=== PATIENT | male | born 1955 | race Caucasian/White ===

== ENCOUNTER → 2016-08-26 | Outpatient (CLI) | payer SELFPAY ==
[~2016-08-26] MED LIST: ALLOPURINOL300 MG PO; AMOXICILLIN500 MG PO; CARAFATE1 G1 PO; CLARITIN10 MG PO; CLINDAMYCIN HC300 MG PO; COLCHICINE0.6 MG PO; EES400 MG PO; FERROUS SULFAT325 M2 PO; FLEXERIL10 MG PO; HYDR12.5C PO; HYDROCODONE BIT1 T11 PO; LISINOPRIL40 MG PO; Lovenox40 MG/0.4 SC; MEDROL DOSEPAK4 MG PO; NAPROXEN500 MG; NEURONTIN100 MG PO; NKHM; NORVASC2.5 MG PO; NORVASC5 MG PO; PEPCID20 MG PO; PHENERGAN25 M3 PO; PREDNICOT20 MG PO; PREDNISONE20 MG PO; PREVACID30 M2 PO; PRILOSEC OTC20 MG PO; PROTONIX40 MG PO; RANITIDINE150 MG PO; SOLU-MEDROL40 MG IV; SUNMARK OMEPRAZ20 M1 PO; TOPROL XL100 MG PO; TRAMADOL HCL50 MG PO; TYLENOL COLD HE1 TAB; ULTRAM50 MG PO; VICODIN 500 MG-1 TAB PO; VICODIN ES 7501 TAB PO; VITAMIN C100 M2; ZANTAC 150150 MG PO; ZITHROMAX250 MG PO; ZOFRAN4 MG PO
[2016-08-26 11:39] LABS: ALBUMIN 3.7 gm/dl (3.1-4.5); ALKALINE PHOSPHATASE 70 U/L (45-117); BILIRUBIN, TOTAL 0.5 mg/dl (0.2-1.0); BUN 12 mg/dl (7-24); CARBON DIOXIDE 29 mmol/L (21-32); CHLORIDE 108 mmol/L (98-107); CHOLESTEROL 158 mg/dL (<200); EST GLOM FILT AFRICAN AMERICAN > 60 ml/min; GLUCOSE 107 mg/dL (65-99); HDL CHOLESTEROL 42 mg/dl (40-60); LDL CHOLESTEROL 84 mg/dL (9-159); POTASSIUM 4.1 mmol/L (3.5-5.1); SGOT/AST 18 IU/L (3-35); SGPT/ALT 35 U/L (12-78); SODIUM 144 mmol/L (136-145); TOTAL PROTEIN 7.5 gm/dL (6.4-8.2); TRIGLYCERIDES 158 mg/dl (<150); VLDL CHOLESTEROL 32 mg/dL (6-40)
== END | disposition home or self-care (01) ==
LOC: RESCLI 01:53
PROVIDERS: Internal Medicine
DX: I10 Essential (primary) hypertension (principal); K21.9 Gastro-esophageal reflux disease without esophagitis; M10.9 Gout, unspecified; E66.9 Obesity, unspecified; E78.2 Mixed hyperlipidemia; L30.9 Dermatitis, unspecified; R20.2 Paresthesia of skin

== ENCOUNTER 2016-10-05 12:03 | Inpatient (IN) | payer SELFPAY ==
[~2016-10-05] VITALS: Ht 157.4 cm; Wt 57.4 kg
--- NOTE | ~2016-10-05 | PR ---
[place], [place] PROGRESS NOTE [id number] UN[facility] #: [id number] ROOM: 518 DOCTOR: YEYO LACKEY [facility] BIRTHDATE: [birth year] DOS: 10/08/2016 OBJECTIVE: VITAL SIGNS: Vital signs stable. Blood pressure 132/64, pulse ox is 94, heart rate is 70, and respiratory rate is 18. SKIN: Warm, not diaphoretic. LUNGS: No rales. HEART: S1, S2 regular. ABDOMEN: Soft. Color is good. Not diaphoretic. No cyanosis. The patient had a GI procedure. Dr. Whitten has done that. It was an EGD and a gastric biopsy, and colonoscopy and a snare polypectomy was done. The patient has abdominal pain and a full report will follow later on and I will review the myocardial perfusion can. If abnormal, coronary arteriography. Otherwise, conservative management explained to the patient. JAY ORONA MD CM:PNTRANS [id number] [id number] JAY ORONA MD [facility] 10/09/16 0929 interface
--- NOTE | ~2016-10-05 | PR ---
[place], [place] PROGRESS NOTE NAME[id number] UN[facility] #: [id number] ROOM: 518 DOCTOR: YEYO LACKEY [facility],JAY BIRTHDATE: [birth year] DOS: 10/08/2016 ADDENDUM The patient underwent dobutamine stress echo. No ischemic changes noted. Systolic function of the left ventricle is normal. Technically difficulty was reported, but no wall motion abnormality is noted. No significant evidence for myocardial ischemia noted. JAY ORONA MD CM:PNTRANS 0738 0749 JAY ORONA MD, [facility]ACC 10/09/16 0931 interface
--- NOTE | ~2016-10-05 | PR ---
[place], [place] PROGRESS NOTE NAME: CIPRIANO THOMPSON [facility] #: [id number] UNIT #: [id number] ROOM: 518 DOCTOR: MERE HAMMOND MD BIRTHDATE: [birth year] DOS: 10/08/2016 SUBJECTIVE: Twenty-four events noted. Discussed with the nursing staff. Apparently, the patient had a stress test by Dr. Mendoza who was automation test developer this weekend. I do not have the official report of that, but I was told that stress test was normal. Hemodynamically, he is stable, underwent an EGD basically showed gastritis and esophagitis. The patient is being followed by Dr. Whitten. OBJECTIVE: GENERAL: Hemodynamically, he appears to be stable. VITAL SIGNS: Blood pressure is stable. NECK: Supple, no JVD. LUNGS: Clear. HEART: Sounds are regular. ABDOMEN: Soft, nontender. NEUROLOGIC: Appears to be stable. LABORATORY DATA: Hemoglobin and hematocrit within normal limits. RECOMMENDATIONS: The patient with gastritis and upper GI esophagitis, hypertension. Continue the metoprolol as ordered. Continue the amlodipine also. Slowly advance the diet and will followup upon discharge. MERE HAMMOND MD CM:PNTRANS 0750 [id number] MERE HAMMOND MD 10/09/16 0113 interface
--- NOTE | ~2016-10-05 | CON ---
[place], [place] REPORT OF CONSULTATION NAME: CIPRIANO THOMPSON [facility] #: [id number] UNIT #: [id number] ROOM: 518 [facility] [birth year] DOS: CARDIOLOGY CONSULTATION IMPRESSION: Very transient chest pain, evaluating for ischemic heart disease. HISTORY OF PRESENT ILLNESS: The patient has a history of hypertension, hypertensive cardiovascular disease considered. No history of smoking. No history of heart attack and no significant family history of heart disease. No syncope or presyncope. No further chest discomfort noted. The patient was found to be hypertensive now. PHYSICAL EXAMINATION: VITAL SIGNS: Blood pressure 164/94, 139/74; heart rate is 63; respiratory rate is 20. Afebrile. SKIN: Warm, not diaphoretic. NECK: No jugular venous distention noted. LUNGS: No rales heard. HEART: S1, S2 regular. No gallops heard. ABDOMEN: Soft, no tenderness noted. NEUROLOGICAL: No focal neurological deficit noted. RECTAL AND GENITAL: Deferred, unrelated. The patient underwent a dobutamine stress echo. No ischemic changes noted. All the segments of the left ventricle ifrah well and no segmental wall motion abnormalities noted greater than 140. Exercise, they could not do the conventional exercise. The patient is on amlodipine 10 mg daily, Zyloprim 100 mg daily, metoprolol succinate 100 mg daily, lisinopril 40 mg daily. The patient was on Norvasc 5 mg, he is now on 10 mg daily. The patient is on simvastatin 20 mg daily. We may change lisinopril/hydrochlorothiazide 20/25 twice a day. Thank you very much for asking me to see the patient. I will follow the patient with you. JAY ORONA MD CM:CONSTR:REPORT OF CONSULTATION 10/08/16 0800 interface
--- NOTE | ~2016-10-05 | O ---
[place], [place] OPERATIVE NOTE [id number] UNIT #: [id number] ROOM: 518 DOCTOR: JAMES LACKEY,LINDY BIRTHDATE: [birth year] DOS: 10/07/2016 The patient has presented with history of rectal bleed. PROCEDURE: Today's procedure part of investigation is colonoscopy. PREMEDICATION: Versed and Diprivan. SCOPE: Olympus forward-viewing colonoscope 10L video. OPERATIVE TECHNIQUE: After putting the patient in the left lateral position and after application of lubricant to rectal pouch and digital examination, scope was introduced. Thereafter, under direct visualization with difficulty, was advanced through the length of the colon to the base of cecum, ileocecal valve definitively was identified. Appendiceal orifice identified, photographed and scope was gradually withdrawn along the length of colon, which contained several loops of colon with semi-liquid stool in it. A polypoid lesion in rectal pouch with snare was polypectomized and air was suctioned out. The patient was extubated, tolerated procedure well. IMPRESSION: Redundant and tortuous colon. Presence of polypoid lesion in the rectal pouch, retained semi-liquid stool. PLAN: I am going to offer this patient to come back on Friday and to be added on the schedule for reassessment of the detailed evaluation of the colon for the presence of other polyps, otherwise for him to await polypectomy results which was done in his rectal pouch approximately 10 cm from the rectal anatomy and follow up again in 6 months. Choice was given to the patient. LINDY RAMIREZ MD CM:OPRECORD:OPERATIVE NOTE 1851 16 LINDY RAMIREZ MD 10/07/16 2018 interface
--- NOTE | ~2016-10-05 | CON ---
[place], [place] REPORT OF CONSULTATION NAME[id number] UN[facility] #: [id number] ROOM: 518 DOCTOR: JAMES LACKEYELIOBERNA BIRTHDATE: [birth year] DOS: HISTORY OF PRESENT ILLNESS: A 61-year-old patient who has presented with atypical chest pain as well as blood in his stool, undergoing investigation. The patient had a cardiac workup done this morning and he was declared clear. He had a panel of blood work done; white blood cell was 7, H and H of 15 and 45. Differential within normal limits. INR was 0.9. Comprehensive metabolic panel with GFR greater than 60. Electrolytes were balanced. Liver function tests. Troponin within normal limits. Chest x-ray subsequently was done, no acute process was identified. His hemoglobin A1c 5.7. Troponin repeatedly was negative. Comprehensive metabolic panel, repeat again within normal limits. PAST MEDICAL HISTORY: Associated with obesity, gout, chronic joint pain, hypertension, osteoarthritis, atypical chest pain. SOCIAL HISTORY: Nonsmoker, nonalcohol consumer he says. Social history, otherwise as identified. ALLERGIES: PENICILLIN AND IBUPROFEN. MEDICATIONS: List has been reviewed. He is on ranitidine 150 mg daily. REVIEW OF SYSTEMS: HEENT: Denies double vision, blurred vision. RESPIRATORY: Denies shortness of breath. CARDIOVASCULAR: Denies chest pain. DIGESTIVE SYSTEM: As identified above. No hematemesis; however, blood in stool. Atypical chest pain. PHYSICAL EXAMINATION: VITAL SIGNS: Stable. HEENT: Head: Normocephalic, nontraumatic. Mouth and buccal mucosa benign. NECK: Supple, no thyromegaly. CHEST: Symmetric anatomy, equal expansion. No wheeze. No rhonchi. HEART: Normal sinus rhythm, no gallop, no murmur. ABDOMEN: Obese, large, soft. No hepato-organomegaly. Bowel sounds present. EXTREMITIES: No cyanosis, no pedal edema. NEUROLOGIC: Alert, oriented to time, place, person. IMPRESSION: Atypical chest pain, ruling out hiatal hernia, ruling out esophageal ulcer with a history of gastric ulcer in past, blood in the stool. Concerned about the source of the above. Other adjunctive diagnosis gouty arthritis, hypercholesterolemia, hypertension. PLAN AND DISCUSSION: Labs reviewed, records reviewed. The patient cardiac stress test has been negative. We will proceed with endoscopy of upper tract and colonoscopy and if it is stable discharging today. [place], [place] REPORT OF CONSULTATION NAME: CIPRIANO THOMPSON UNIT #: [id number] ROOM: 518 DOCTOR: LINDY RAMIREZ MD BIRTHDATE: [birth year] LINDY RAMIREZ MD CM:CONSTR:REPORT OF CONSULTATION 1749 10/08/16 1307 interface
--- NOTE | ~2016-10-05 | O ---
[place], [place] OPERATIVE NOTE NAME[facility] [id number] UNIT #: [id number] ROOM: 518 DOCTOR: JAMES LACKEY,LINDY BIRTHDATE: [birth year] DOS: 10/07/2016 HISTORY OF PRESENT ILLNESS: This is a 61-year-old patient who was presented with chief complaint of blood in stool, undergo investigation. The patient with atypical chest pain, status post cardiac clearance. PROCEDURE: Today's procedure part of investigation is panendoscopy and colonoscopy. PREMEDICATION: Versed and Diprivan. SCOPE: Olympus forward-viewing gastroscope Q10 video. REPORT: After putting the patient in the left lateral position and after application of lubricant to the scope, the scope was introduced. Thereafter, under direct visualization, I advanced through the length of esophagus without difficulty. Evidence of reflux esophagitis and erosions was appreciated. Gastric pouch was entered. Gastritis seen. Duodenal bulb, second and third part within normal limits. The patient extubated, tolerated procedure well. IMPRESSION: Esophageal erosions secondary to reflux, gastritis, status post biopsy ruling out Helicobacter pylori. PLAN AND DISCUSSION: We are going to proceed with colonoscopy assessment. LINDY RAMIREZ MD CM:OPRECORD:OPERATIVE NOTE 1851 12 LINDY RAMIREZ MD 10/07/16 2014 interface
--- NOTE | ~2016-10-05 | O ---
[place], [place] OPERATIVE NOTE NAME: CIPRIANO THOMPSON [facility] #: [id number] UNIT #: [id number] ROOM: 518 DOCTOR: JAMES LACKEY,LINDY BIRTHDATE: [birth year] DOS: 10/09/2016 INDICATIONS: A 61-year-old patient who has presented with chief complaint of history of colonic polyp, a polypectomy had been done previously on him. However, his colon was not clean enough to have detailed information about the rest of the colon. PROCEDURE: Today's procedure part of investigation is colonoscopy plus polypectomy x 2. PREMEDICATION: Versed and Diprivan. SCOPE: Olympus forward viewing colonoscope 10L video. REPORT: After putting the patient in left lateral position and application of lubricant to rectal pouch and digital examination, the scope was introduced. Thereafter, under direct visualization, I advanced through the length of colon without difficulty. Base of the cecum explored, appendiceal orifice identified, and ileocecal valve was defined. A flat polypoid lesion in the hepatic flexure with snare was polypectomized. Another polypoid lesion in rectal pouch, which appears to be residual debris and the stump of the previous polyps, was polypectomized again and the site was deeply coagulated. This polyp of concern in the rectum is about 3 cm with inside the rectal pouch. Photographic series from which was obtained. The patient extubated, tolerated procedure well. IMPRESSION: 1. Rectal pouch polyp, status post snare polypectomy and coagulation of the site for deep management of polyp infiltration. 2. A flat polypoid lesion at hepatic flexure, status post snare polypectomy. PLAN: Supportive management, clinical reassessment. LINDY RAMIREZ MD CM:OPRECORD:OPERATIVE NOTE 0933 1244 LINDY RAMIREZ MD 10/09/16 1244 interface
[2016-10-05 12:03] VITALS: BP 149/87
[2016-10-05] MEDS ORDERED: Ranitidine Hyd150 MG PO (12:17)
[2016-10-05] MEDS ORDERED: PRAVASTATIN SOD40 MG PO (12:18)
[2016-10-05 12:19] LABS: BASO # 0.1 10*3/uL (0.0-0.1); BASO % 1.2 % (0.0-1.0); EOS # 0.2 10*3/uL (0.0-0.4); EOS % 2.1 % (1.0-4.0); HEMATOCRIT 45.7 % (42.0-52.0); HEMOGLOBIN 15.6 g/dl (14.0-18.0); LYMPH # 1.9 10*3/uL (1.3-4.4); LYMPH % 25.2 % (27.0-41.0); MEAN CORPUSCULAR HGB 31.1 pg (27.0-31.0); MEAN CORPUSCULAR HGB CONC 34.1 g/dl (33.0-37.0); MEAN PLATELET VOLUME 10.2 fl (9.6-12.3); MONO # 0.6 10*3/uL (0.1-1.0); MONO % 8.2 % (3.0-9.0); NEUT # 4.9 10*3/uL (2.3-7.9); NEUT % 63.2 % (47.0-73.0); PLATELET COUNT AUTOMATED 214 10*3/uL (130-400); RED BLOOD COUNT 5.02 10*6/uL (4.50-5.90); RED CELL DISTRI WIDTH 13.1 % (0-14.5); WHITE BLOOD COUNT 7.7 10*3/uL (4.8-10.8)
[2016-10-05 12:28] LABS: INTERNATIONAL NORM RATIO 0.9 (2.0-3.5)
[2016-10-05 12:38] LABS: ALBUMIN 3.6 gm/dl (3.1-4.5); ALKALINE PHOSPHATASE 73 U/L (45-117); BILIRUBIN, TOTAL 0.5 mg/dl (0.2-1.0); BUN 9 mg/dl (7-24); CARBON DIOXIDE 25 mmol/L (21-32); CHLORIDE 109 mmol/L (98-107); EST GLOM FILT AFRICAN AMERICAN > 60 ml/min; GLUCOSE 100 mg/dL (65-99); MAGNESIUM 2.1 mg/dL (1.5-2.1); SGOT/AST 23 IU/L (3-35); SGPT/ALT 27 U/L (12-78); SODIUM 143 mmol/L (136-145); TOTAL PROTEIN 7.5 gm/dL (6.4-8.2); TROPONIN I < 0.015 ng/ml (<0.045)
[2016-10-05 12:42] VITALS: BP 144/68
[2016-10-05 14:00] VITALS: BP 144/87
[2016-10-05 14:35] VITALS: BP 144/87
[2016-10-05] MEDS ORDERED: ALLOPURINOL100 MG PO (14:48)
[2016-10-05 16:00] VITALS: BP 133/90
[2016-10-05 20:00] VITALS: BP 126/74
[2016-10-06] VITALS: BP 131/60
[2016-10-06 06:13] LABS: BASO # 0.1 10*3/uL (0.0-0.1); EOS # 0.2 10*3/uL (0.0-0.4); EOS % 2.9 % (1.0-4.0); HEMATOCRIT 44.2 % (42.0-52.0); LYMPH # 2.4 10*3/uL (1.3-4.4); LYMPH % 32.6 % (27.0-41.0); MEAN CELL VOLUME 91.3 fl (80.0-94.0); MEAN CORPUSCULAR HGB CONC 33.9 g/dl (33.0-37.0); MEAN PLATELET VOLUME 10.2 fl (9.6-12.3); MONO # 0.7 10*3/uL (0.1-1.0); MONO % 9.3 % (3.0-9.0); NEUT % 54.1 % (47.0-73.0); PLATELET COUNT AUTOMATED 210 10*3/uL (130-400); RED BLOOD COUNT 4.84 10*6/uL (4.50-5.90); RED CELL DISTRI WIDTH 12.9 % (0-14.5); WHITE BLOOD COUNT 7.3 10*3/uL (4.8-10.8)
[2016-10-06 06:31] LABS: HEMOGLOBIN A1c 5.7 % (4.8-5.6)
[2016-10-06 06:40] LABS: ALBUMIN 3.2 gm/dl (3.1-4.5); ALKALINE PHOSPHATASE 68 U/L (45-117); BILIRUBIN, TOTAL 0.3 mg/dl (0.2-1.0); BUN 14 mg/dl (7-24); CARBON DIOXIDE 27 mmol/L (21-32); CHLORIDE 106 mmol/L (98-107); EST GLOM FILT AFRICAN AMERICAN > 60 ml/min; GLUCOSE 100 mg/dL (65-99); POTASSIUM 3.8 mmol/L (3.5-5.1); SGOT/AST 14 IU/L (3-35); SGPT/ALT 24 U/L (12-78); SODIUM 141 mmol/L (136-145)
[2016-10-06 06:48] LABS: FREE T4 0.99 ng/dl (0.76-1.46)
[2016-10-06 08:00] VITALS: BP 137/81
[2016-10-06 12:00] VITALS: BP 134/75
[2016-10-06 16:00] VITALS: BP 139/74
[2016-10-06 20:00] VITALS: BP 164/94
[2016-10-07] VITALS (9 sets, daily range): BP systolic 128–158; BP diastolic 64–92
[2016-10-08] VITALS (7 sets, daily range): BP systolic 110–132; BP diastolic 64–84
[2016-10-09] VITALS (7 sets, daily range): BP systolic 94–151; BP diastolic 70–96
[2016-10-09 06:23] LABS: BASO # 0.1 10*3/uL (0.0-0.1); BASO % 0.6 % (0.0-1.0); EOS # 0.2 10*3/uL (0.0-0.4); EOS % 1.7 % (1.0-4.0); HEMATOCRIT 49.9 % (42.0-52.0); HEMOGLOBIN 17.3 g/dl (14.0-18.0); IG # 0.1 10*3/uL (0.0-0.1); LYMPH # 1.6 10*3/uL (1.3-4.4); LYMPH % 14.1 % (27.0-41.0); MEAN CELL VOLUME 91.4 fl (80.0-94.0); MEAN CORPUSCULAR HGB 31.7 pg (27.0-31.0); MEAN CORPUSCULAR HGB CONC 34.7 g/dl (33.0-37.0); MEAN PLATELET VOLUME 10.3 fl (9.6-12.3); MONO # 0.9 10*3/uL (0.1-1.0); MONO % 8.3 % (3.0-9.0); NEUT # 8.3 10*3/uL (2.3-7.9); NEUT % 74.8 % (47.0-73.0); PLATELET COUNT AUTOMATED 252 10*3/uL (130-400); RED BLOOD COUNT 5.46 10*6/uL (4.50-5.90); RED CELL DISTRI WIDTH 13.2 % (0-14.5); WHITE BLOOD COUNT 11.1 10*3/uL (4.8-10.8)
[2016-10-09 06:57] LABS: POTASSIUM 3.8 mmol/L (3.5-5.1)
[2016-10-09] MEDS ORDERED: LISINOPRIL20 MG PO (11:31)
== END 2016-10-09 14:10 | disposition home or self-care (01) | DRG 391 ==
LOC: ED 12:03 → EDHOLD 13:34 → 5E 13:34
PROVIDERS: Emergency Medicine; Family Medicine; Internal Medicine Hospice and Palliative Medicine
PROC: 0DJD8ZZ Inspection of Lower Intestinal Tract, Via Natural or Artificial Opening Endoscopic (ICD-10-PCS; principal; 2016-10-07)
PROC: 0DB68ZX Excision of Stomach, Via Natural or Artificial Opening Endoscopic, Diagnostic (ICD-10-PCS; principal; 2016-10-07)
PROC: 4A02XM4 Measurement of Cardiac Total Activity, External Approach (ICD-10-PCS; 2016-10-08)
PROC: 0DBL8ZZ Excision of Transverse Colon, Via Natural or Artificial Opening Endoscopic (ICD-10-PCS; 2016-10-09)
PROC: 0DBP8ZZ Excision of Rectum, Via Natural or Artificial Opening Endoscopic (ICD-10-PCS; 2016-10-09)
DX: K21.0 Gastro-esophageal reflux disease with esophagitis (principal); N17.0 Acute kidney failure with tubular necrosis; E44.1 Mild protein-calorie malnutrition; K22.10 Ulcer of esophagus without bleeding; K29.70 Gastritis, unspecified, without bleeding; I10 Essential (primary) hypertension; E78.1 Pure hyperglyceridemia; R00.1 Bradycardia, unspecified; K63.5 Polyp of colon; R73.9 Hyperglycemia, unspecified; M10.9 Gout, unspecified; E78.00 Pure hypercholesterolemia, unspecified; M19.90 Unspecified osteoarthritis, unspecified site; G89.29 Other chronic pain; M25.522 Pain in left elbow; Z82.3 Family history of stroke; Z84.89 Family history of other specified conditions; Z88.0 Allergy status to penicillin; Z88.6 Allergy status to analgesic agent; Z79.899 Other long term (current) drug therapy

== ENCOUNTER → 2016-10-21 | Outpatient (CLI) | payer SELFPAY ==
[~2016-10-21] MED LIST changes: +ALLOPURINOL100 MG PO; +LISINOPRIL20 MG PO; +PRAVASTATIN SOD40 MG PO; +Ranitidine Hyd150 MG PO
[2016-10-21 14:40] LABS: BASO # 0.1 10*3/uL (0.0-0.1); BASO % 0.9 % (0.0-1.0); EOS # 0.2 10*3/uL (0.0-0.4); EOS % 3.1 % (1.0-4.0); HEMATOCRIT 47.1 % (42.0-52.0); HEMOGLOBIN 16.3 g/dl (14.0-18.0); LYMPH # 1.8 10*3/uL (1.3-4.4); LYMPH % 27.1 % (27.0-41.0); MEAN CELL VOLUME 89.4 fl (80.0-94.0); MEAN CORPUSCULAR HGB 30.9 pg (27.0-31.0); MEAN CORPUSCULAR HGB CONC 34.6 g/dl (33.0-37.0); MONO # 0.7 10*3/uL (0.1-1.0); MONO % 10.2 % (3.0-9.0); NEUT % 58.6 % (47.0-73.0); PLATELET COUNT AUTOMATED 251 10*3/uL (130-400); RED BLOOD COUNT 5.27 10*6/uL (4.50-5.90); WHITE BLOOD COUNT 6.8 10*3/uL (4.8-10.8)
[2016-10-21 14:54] LABS: BUN 13 mg/dl (7-24); CARBON DIOXIDE 25 mmol/L (21-32); CHLORIDE 107 mmol/L (98-107); EST GLOM FILT AFRICAN AMERICAN > 60 ml/min; GLUCOSE 105 mg/dL (65-99); POTASSIUM 3.8 mmol/L (3.5-5.1); SODIUM 143 mmol/L (136-145)
== END | disposition home or self-care (01) ==
LOC: RESCLI 03:35
PROVIDERS: Internal Medicine
DX: M1A.0790 Idiopathic chronic gout, unspecified ankle and foot, without tophus (tophi) (principal); I10 Essential (primary) hypertension; K21.9 Gastro-esophageal reflux disease without esophagitis; E78.2 Mixed hyperlipidemia; E66.9 Obesity, unspecified

== ENCOUNTER → 2016-12-31 | Outpatient (CLI) | payer SELFPAY | LOC: RESCLI 02:15 | DX: I10 Essential (primary) hypertension (principal); E66.9 Obesity, unspecified; E78.2 Mixed hyperlipidemia; L30.9 Dermatitis, unspecified; M10.9 Gout, unspecified; M1A.0790 Idiopathic chronic gout, unspecified ankle and foot, without tophus (tophi); M15.0 Primary generalized (osteo)arthritis; R20.2 Paresthesia of skin; K21.9 Gastro-esophageal reflux disease without esophagitis; E78.00 Pure hypercholesterolemia, unspecified; D50.9 Iron deficiency anemia, unspecified; Z88.0 Allergy status to penicillin; Z88.5 Allergy status to narcotic agent ==

== ENCOUNTER 2017-01-04 12:12 | Emergency (ER) | payer SELFPAY ==
[~2017-01-04] VITALS: Wt 129.3 kg
[2017-01-04] MEDS ORDERED: PREDNISONE10 MG PO (12:25)
[2017-01-04] MEDS ORDERED: 'PARAFON FORTE500 M1 PO (12:25)
== END 2017-01-04 14:32 | disposition home or self-care (01) ==
LOC: ED 12:12
DX: M25.512 Pain in left shoulder (principal); R03.0 Elevated blood-pressure reading, without diagnosis of hypertension; I10 Essential (primary) hypertension; K21.9 Gastro-esophageal reflux disease without esophagitis; E78.00 Pure hypercholesterolemia, unspecified; M19.90 Unspecified osteoarthritis, unspecified site; Z88.0 Allergy status to penicillin; Z88.6 Allergy status to analgesic agent

== ENCOUNTER → 2017-04-22 | Outpatient (CLI) | payer SELFPAY ==
[~2017-04-22] MED LIST changes: +'PARAFON FORTE500 M1 PO; +PREDNISONE10 MG PO
== END | disposition home or self-care (01) ==
LOC: RESCLI 03:09
DX: M15.0 Primary generalized (osteo)arthritis (principal); K21.9 Gastro-esophageal reflux disease without esophagitis; E78.2 Mixed hyperlipidemia; E66.01 Morbid (severe) obesity due to excess calories; M54.5 Low back pain; I10 Essential (primary) hypertension; G62.9 Polyneuropathy, unspecified; M1A.0790 Idiopathic chronic gout, unspecified ankle and foot, without tophus (tophi); Z88.0 Allergy status to penicillin

== ENCOUNTER 2017-06-17 15:50 | Emergency (ER) | payer SELFPAY ==
[~2017-06-17] VITALS: Ht 190.5 cm; Wt 133.8 kg
[2017-06-17 17:03] LABS: BASO # 0.1 10*3/uL (0.0-0.1); BASO % 1.4 % (0.0-1.0); EOS # 0.4 10*3/uL (0.0-0.4); EOS % 5.9 % (1.0-4.0); HEMATOCRIT 45.6 % (42.0-52.0); LYMPH # 1.8 10*3/uL (1.3-4.4); LYMPH % 24.5 % (27.0-41.0); MEAN CELL VOLUME 89.6 fl (80.0-94.0); MEAN CORPUSCULAR HGB 31.4 pg (27.0-31.0); MEAN CORPUSCULAR HGB CONC 35.1 g/dl (33.0-37.0); MEAN PLATELET VOLUME 10.3 fl (9.6-12.3); MONO # 0.6 10*3/uL (0.1-1.0); NEUT # 4.4 10*3/uL (2.3-7.9); NEUT % 59.9 % (47.0-73.0); PLATELET COUNT AUTOMATED 225 10*3/uL (130-400); RED BLOOD COUNT 5.09 10*6/uL (4.50-5.90); RED CELL DISTRI WIDTH 12.5 % (0-14.5); WHITE BLOOD COUNT 7.3 10*3/uL (4.8-10.8)
[2017-06-17 17:17] LABS: BUN 19 mg/dl (7-24); CHLORIDE 105 mmol/L (98-107); CREATININE 1.07 mg/dL (0.70-1.30); SODIUM 140 mmol/L (136-145)
[2017-06-17] MEDS ORDERED: ZITHROMAX250 MG PO (17:55)
== END 2017-06-17 18:04 | disposition home or self-care (01) ==
LOC: ED 15:50
PROVIDERS: Nurse Practitioner Family
DX: J01.90 Acute sinusitis, unspecified (principal); K21.9 Gastro-esophageal reflux disease without esophagitis; I10 Essential (primary) hypertension; E78.00 Pure hypercholesterolemia, unspecified; R73.9 Hyperglycemia, unspecified; M10.9 Gout, unspecified; G89.29 Other chronic pain; Z88.0 Allergy status to penicillin; Z88.8 Allergy status to other drugs, medicaments and biological substances; Z79.899 Other long term (current) drug therapy

== ENCOUNTER → 2017-10-27 | Outpatient (CLI) | payer SELFPAY ==
[2017-10-27 14:24] LABS: CHOLESTEROL 161 mg/dL (<200); HDL CHOLESTEROL 30 mg/dl (40-60); LDL CHOLESTEROL 93 mg/dL (9-159); TRIGLYCERIDES 189 mg/dl (<150); VLDL CHOLESTEROL 38 mg/dL (6-40)
== END | disposition home or self-care (01) ==
LOC: RESCLI 10-23 10:36 → LAB 01:39 → RESCLI 01:39
PROVIDERS: Internal Medicine Hospice and Palliative Medicine
DX: E78.2 Mixed hyperlipidemia (principal); I10 Essential (primary) hypertension; E66.01 Morbid (severe) obesity due to excess calories; R79.89 Other specified abnormal findings of blood chemistry

== ENCOUNTER → 2018-09-22 | Outpatient (CLI) | payer SELFPAY ==
[~2018-09-22] MED LIST changes: +CYCLOBENZAPRINE10 MG PO; +CYCLOBENZAPRINE5 M3 PO; +HYDROCODONE-AC1 EAC1 PO; +METOPROLOL SUCC50 M1 PO; +PRAVASTATIN SOD20 MG PO; +PREDNISONE50 MG PO
== END | disposition home or self-care (01) ==
LOC: RESCLI 08:56
DX: I10 Essential (primary) hypertension (principal); M1A.0790 Idiopathic chronic gout, unspecified ankle and foot, without tophus (tophi); K21.9 Gastro-esophageal reflux disease without esophagitis; G62.9 Polyneuropathy, unspecified; M15.0 Primary generalized (osteo)arthritis; E66.9 Obesity, unspecified; M19.90 Unspecified osteoarthritis, unspecified site; Z91.09 Other allergy status, other than to drugs and biological substances; Z79.899 Other long term (current) drug therapy; Z88.0 Allergy status to penicillin

== ENCOUNTER → 2018-10-13 | Outpatient (CLI) | payer SELFPAY ==
[2018-10-13 12:55] LABS: ALBUMIN 3.9 gm/dl (3.1-4.5); BUN 14 mg/dl (7-24); CHLORIDE 107 mmol/L (98-107); CHOLESTEROL 219 mg/dL (<200); CREATININE 1.11 mg/dL (0.70-1.30); POTASSIUM 4.1 mmol/L (3.5-5.1); SGOT/AST 17 IU/L (3-35); SGPT/ALT 26 U/L (12-78); SODIUM 140 mmol/L (136-145); TOTAL PROTEIN 7.5 gm/dL (6.4-8.2); TRIGLYCERIDES 211 mg/dl (<150); VLDL CHOLESTEROL 42 mg/dL (6-40)
[2018-10-13 13:04] LABS: ALKALINE PHOSPHATASE 75 U/L (45-117); HDL CHOLESTEROL 33 mg/dl (40-60); LDL CHOLESTEROL 144 mg/dL (9-159)
[2018-10-13 13:15] LABS: VITAMIN D, 25-HYDROXY 15.8 ng/mL (30-100)
[2018-10-13 13:24] LABS: BASO # 0.1 10*3/uL (0.0-0.1); BASO % 1.2 % (0.0-1.0); EOS # 0.1 10*3/uL (0.0-0.4); EOS % 2.2 % (1.0-4.0); HEMATOCRIT 49.1 % (42.0-52.0); HEMOGLOBIN 16.8 g/dl (14.0-18.0); LYMPH # 1.5 10*3/uL (1.3-4.4); LYMPH % 25.9 % (27.0-41.0); MEAN CELL VOLUME 92.3 fl (80.0-94.0); MEAN CORPUSCULAR HGB 31.6 pg (27.0-31.0); MEAN CORPUSCULAR HGB CONC 34.2 g/dl (33.0-37.0); MEAN PLATELET VOLUME 10.8 fl (9.6-12.3); MONO # 0.6 10*3/uL (0.1-1.0); MONO % 10.4 % (3.0-9.0); NEUT # 3.5 10*3/uL (2.3-7.9); NEUT % 60.1 % (47.0-73.0); PLATELET COUNT AUTOMATED 228 10*3/uL (130-400); RED BLOOD COUNT 5.32 10*6/uL (4.50-5.90); RED CELL DISTRI WIDTH 13.1 % (0-14.5); WHITE BLOOD COUNT 5.8 10*3/uL (4.8-10.8)
== END | disposition home or self-care (01) ==
LOC: LAB 11:49
PROVIDERS: Internal Medicine Nephrology
DX: I10 Essential (primary) hypertension (principal)

== ENCOUNTER → 2018-12-15 | Outpatient (CLI) | payer SELFPAY | END | disposition home or self-care (01) | LOC: RESCLI 08:13 | DX: Z00.00 Encounter for general adult medical examination without abnormal findings (principal); I10 Essential (primary) hypertension; R20.2 Paresthesia of skin; M15.0 Primary generalized (osteo)arthritis; M1A.0790 Idiopathic chronic gout, unspecified ankle and foot, without tophus (tophi); E78.2 Mixed hyperlipidemia; L30.9 Dermatitis, unspecified; K21.9 Gastro-esophageal reflux disease without esophagitis; M54.5 Low back pain; G89.29 Other chronic pain; M25.561 Pain in right knee; M25.562 Pain in left knee; E66.01 Morbid (severe) obesity due to excess calories; G62.9 Polyneuropathy, unspecified; F32.0 Major depressive disorder, single episode, mild; E55.9 Vitamin D deficiency, unspecified; E66.9 Obesity, unspecified; Z85.9 Personal history of malignant neoplasm, unspecified; Z91.09 Other allergy status, other than to drugs and biological substances; Z79.899 Other long term (current) drug therapy ==

== ENCOUNTER 2018-12-18 16:59 | Inpatient (IN) | payer SELFPAY ==
[~2018-12-18] VITALS: Ht 190.5 cm; Wt 127.0 kg
--- NOTE | ~2018-12-18 | EKG ---
[place], [place] ELECTROCARDIOGRAM REPORT NAME: CIPRIANO THOMPSON UNIT #: [id number] ROOM: [facility] DOCTOR: KATHERINE DRAFT REPORT BIRTHDATE: [birth year] [facility] Test Date: 2018-12-18 Test Time: 18:36:34 Pat Name: CIPRIANO THOMPSON Department: Room: [facility] Gender: M Senior Coldfusion Developer: Cher Mcginnis : 1955 Requested By: CARINA DUBOSE Order Number: [id number] Reading MD: Elliott Retana Measurements Intervals [place] Rate: 85 P: 13 WI: 166 QRS: 3 QRSD: 104 T: 4 QT: 384 QTc: 457 Interpretive Statements Sinus rhythm Probable left atrial enlargement Left ventricular hypertrophy Inferior infarct, old Electronically Signed On 12-20-2018 9:47:10 PDT by Elliott Retana CM:EKGRPT:ELECTROCARDIOGRAM REPORT 1836 0947 CARINA WHITE DRAFT REPORT CARINA DUBOSE DO
--- NOTE | ~2018-12-18 | EKG ---
[place], [place] ELECTROCARDIOGRAM REPORT NAME: CIPRIANO THOMPSON UNIT #: [id number] ROOM: [facility] DOCTOR: KATHERINE DRAFT REPORT BIRTHDATE: [birth year] [facility] Test Date: 2018-12-18 Test Time: 23:30:36 Pat Name: CIPRIANO THOMPSON Department: Room: [facility] Gender: M Manager Safe: Cher Mcginnis : 1955 Requested By: CARINA DUBOSE Order Number: [id number] Reading MD: Elliott Retana Measurements Intervals [place] Rate: 82 P: 11 AL: 185 QRS: 0 QRSD: 103 T: 15 QT: 376 QTc: 439 Interpretive Statements Sinus rhythm Left atrial enlargement Abnormal R-wave progression, early transition Electronically Signed On 12-20-2018 9:48:04 PDT by Elliott Retana CM:EKGRPT:ELECTROCARDIOGRAM REPORT 2330 0948 CARINA WHITE DRAFT REPORT CARINA DUBOSE DO
--- NOTE | ~2018-12-18 | EKG ---
[place], [place] ELECTROCARDIOGRAM REPORT NAME: CIPRIANO THOMPSON UNIT #: [id number] ROOM: [facility] DOCTOR: KATHERINE DRAFT REPORT BIRTHDATE: [birth year] [facility] Test Date: 2018-12-18 Test Time: 20:30:12 Pat Name: CIPRIANO THOMPSON Department: Room: [facility] Gender: M Molded Candles Wicker: Cher Mcginnis : 1955 Requested By: CARINA DUBOSE Order Number: [id number] Reading MD: Elliott Retana Measurements Intervals [place] Rate: 94 P: 21 [place]: 154 QRS: 15 QRSD: 105 T: -29 QT: 374 QTc: 468 Interpretive Statements Sinus rhythm Probable left atrial enlargement Borderline T abnormalities, inferior leads Baseline wander in lead(s) I,V1 Electronically Signed On 12-20-2018 9:47:32 PDT by Elliott Retana CM:EKGRPT:ELECTROCARDIOGRAM REPORT 29 0947 CARINA WHITE DRAFT REPORT CARINA DUBOSE DO
[2018-12-18 16:59] VITALS: BP 112/87
[~2018-12-18 16:59] MED LIST changes: -CYCLOBENZAPRINE5 M3 PO; -HYDROCODONE-AC1 EAC1 PO; -METOPROLOL SUCC50 M1 PO; -PRAVASTATIN SOD20 MG PO
[2018-12-18 18:00] LABS: BASO # 0.1 10*3/uL (0.0-0.1); EOS # 0.1 10*3/uL (0.0-0.4); EOS % 1.6 % (1.0-4.0); HEMATOCRIT 46.4 % (42.0-52.0); HEMOGLOBIN 16.3 g/dl (14.0-18.0); LYMPH # 1.8 10*3/uL (1.3-4.4); LYMPH % 25.7 % (27.0-41.0); MEAN CELL VOLUME 89.7 fl (80.0-94.0); MEAN CORPUSCULAR HGB 31.5 pg (27.0-31.0); MEAN CORPUSCULAR HGB CONC 35.1 g/dl (33.0-37.0); MEAN PLATELET VOLUME 10.6 fl (9.6-12.3); MONO # 0.7 10*3/uL (0.1-1.0); MONO % 9.6 % (3.0-9.0); NEUT # 4.4 10*3/uL (2.3-7.9); PLATELET COUNT AUTOMATED 221 10*3/uL (130-400); RED BLOOD COUNT 5.17 10*6/uL (4.50-5.90); RED CELL DISTRI WIDTH 12.6 % (0-14.5); WHITE BLOOD COUNT 7.1 10*3/uL (4.8-10.8)
[2018-12-18 18:11] LABS: ACT PARTIAL THROMBO TIME 26.7 SECONDS (20.0-32.1); INTERNATIONAL NORM RATIO 0.9 (2.0-3.5)
[2018-12-18 18:15] LABS: ALBUMIN 3.9 gm/dl (3.1-4.5); ALKALINE PHOSPHATASE 74 U/L (45-117); BUN 13 mg/dl (7-24); CHLORIDE 109 mmol/L (98-107); CREATININE 0.93 mg/dL (0.70-1.30); LIPASE 234 U/L (73-393); POTASSIUM 3.7 mmol/L (3.5-5.1); SGOT/AST 13 IU/L (3-35); SGPT/ALT 29 U/L (12-78); SODIUM 141 mmol/L (136-145); TOTAL PROTEIN 7.5 gm/dL (6.4-8.2)
[2018-12-18 18:18] LABS: TROPONIN I < 0.015 ng/ml (<0.045)
--- NOTE | 2018-12-18 19:01 | NUR ---
NURSE TO NURSE REPORT GIVEN TO THIS RN.PT AWAITING ROOM ASSIGNMENT AND ADMISSION TO UNIT.
[2018-12-18 19:17] VITALS: BP 173/96
[2018-12-18 20:38] VITALS: BP 152/90
--- NOTE | 2018-12-18 20:38 | NUR ---
PT RESTING IN BED, PT ADVISED ON CURRENT PLAN OF CARE.PT PROVIDED SANDWICH MEAL BOX.
[2018-12-18 23:08] VITALS: BP 149/97
[2018-12-18] MEDS ORDERED: METOPROLOL SUCC50 M1 PO (23:24)
[2018-12-18] MEDS ORDERED: PRAVASTATIN SOD20 MG PO (23:25)
--- NOTE | 2018-12-18 23:33 | NUR ---
PT REPORTS BACK PAIN 12/16, PT REQUESTING ALEVE,PT MEDICATED WITH 650MG TYLENOL PER EMAR FOR PAIN.
--- NOTE | 2018-12-19 00:09 | NUR ---
PT PASSWORD "FABIO ESPOSITO"
[2018-12-19 03:40] VITALS: BP 115/62
[2018-12-19 06:05] VITALS: BP 136/62
[2018-12-19 06:14] LABS: BASO # 0.1 10*3/uL (0.0-0.1); BASO % 1.2 % (0.0-1.0); EOS # 0.2 10*3/uL (0.0-0.4); EOS % 2.7 % (1.0-4.0); HEMATOCRIT 46.3 % (42.0-52.0); HEMOGLOBIN 15.8 g/dl (14.0-18.0); LYMPH # 2.1 10*3/uL (1.3-4.4); LYMPH % 36.7 % (27.0-41.0); MEAN CELL VOLUME 91.5 fl (80.0-94.0); MEAN CORPUSCULAR HGB 31.2 pg (27.0-31.0); MEAN CORPUSCULAR HGB CONC 34.1 g/dl (33.0-37.0); MEAN PLATELET VOLUME 10.9 fl (9.6-12.3); MONO # 0.6 10*3/uL (0.1-1.0); MONO % 10.5 % (3.0-9.0); NEUT # 2.7 10*3/uL (2.3-7.9); NEUT % 48.7 % (47.0-73.0); PLATELET COUNT AUTOMATED 226 10*3/uL (130-400); RED BLOOD COUNT 5.06 10*6/uL (4.50-5.90); RED CELL DISTRI WIDTH 12.8 % (0-14.5); WHITE BLOOD COUNT 5.6 10*3/uL (4.8-10.8)
[2018-12-19 06:27] LABS: BUN 14 mg/dl (7-24); CHLORIDE 108 mmol/L (98-107); CREATININE 1.13 mg/dL (0.70-1.30); SODIUM 141 mmol/L (136-145)
[2018-12-19 06:31] LABS: POTASSIUM 3.5 mmol/L (3.5-5.1)
[2018-12-19 07:01] LABS: INTERNATIONAL NORM RATIO 0.9 (2.0-3.5)
[2018-12-19 07:40] VITALS: BP 126/60
--- NOTE | 2018-12-19 07:45 | NUR ---
REPORT RECEIVED AT 0705 FROM RIGOBERTO DAVID. THIS PT IS RESTING,HE IS ALERT. VS ARE STABLE. HIS COLOR IS PINK,SKIN W/D. RESPIRATIONS ARE NON-LABORED. VS ARE STABLE. PT WILL BE ADMITTED,WAITING FOR IN PT BED ASSIGNMENT. NADIRA DAVID
--- NOTE | 2018-12-19 08:49 | NUR ---
PT HAS BEEN GIVEN A BREAKFAST TRAY AT THIS TIME. REMAINS AWAKE AND ALERT. HE IS COMPLAINING OF CERVICAL SPINE PAIN, WILL BE MEDICATED FOR THIS. NADIRA DAVID
[2018-12-19] MEDS ORDERED: HYDROCODONE-AC1 EAC1 PO (09:38)
[2018-12-19] MEDS ORDERED: PREDNISONE10 MG PO (09:38)
== END 2018-12-19 10:08 | disposition home or self-care (01) | DRG 313 ==
LOC: ED 16:59 → EDHOLD 18:50
PROVIDERS: Emergency Medicine; Internal Medicine; ADMIT Internal Medicine
DX: R07.89 Other chest pain (principal); I10 Essential (primary) hypertension; E78.5 Hyperlipidemia, unspecified; E66.9 Obesity, unspecified; K27.9 Peptic ulcer, site unspecified, unspecified as acute or chronic, without hemorrhage or perforation; K21.0 Gastro-esophageal reflux disease with esophagitis; M1A.9XX0 Chronic gout, unspecified, without tophus (tophi); E87.8 Other disorders of electrolyte and fluid balance, not elsewhere classified; M19.90 Unspecified osteoarthritis, unspecified site; Z79.899 Other long term (current) drug therapy; Z88.0 Allergy status to penicillin; Z88.6 Allergy status to analgesic agent; Z79.1 Long term (current) use of non-steroidal anti-inflammatories (NSAID)

== ENCOUNTER 2019-01-05 10:01 | Emergency (ER) | payer SELFPAY ==
[~2019-01-05] VITALS: Ht 190.5 cm; Wt 127.0 kg
[~2019-01-05 10:01] MED LIST changes: +HYDROCODONE-AC1 EAC1 PO; +METOPROLOL SUCC50 M1 PO; +PRAVASTATIN SOD20 MG PO
[2019-01-05] MEDS ORDERED: CYCLOBENZAPRINE5 M3 PO (11:11)
[2019-01-05] MEDS ORDERED: MEDROL DOSEPAK4 MG PO (11:11)
== END 2019-01-05 11:15 | disposition home or self-care (01) ==
LOC: ED 10:01
DX: M54.41 Lumbago with sciatica, right side (principal); Z88.0 Allergy status to penicillin; Z88.8 Allergy status to other drugs, medicaments and biological substances; Z79.899 Other long term (current) drug therapy

== ENCOUNTER → 2019-02-23 | Outpatient (CLI) | payer SELFPAY ==
[~2019-02-23] MED LIST changes: +CYCLOBENZAPRINE5 M3 PO
== END | disposition home or self-care (01) ==
LOC: RESCLI 01:25
DX: I10 Essential (primary) hypertension (principal); G62.9 Polyneuropathy, unspecified; E55.9 Vitamin D deficiency, unspecified; E66.9 Obesity, unspecified; E78.2 Mixed hyperlipidemia; M25.561 Pain in right knee; M54.5 Low back pain; E66.01 Morbid (severe) obesity due to excess calories; M25.562 Pain in left knee; G89.29 Other chronic pain; K21.9 Gastro-esophageal reflux disease without esophagitis; R20.2 Paresthesia of skin; M1A.0790 Idiopathic chronic gout, unspecified ankle and foot, without tophus (tophi); L30.9 Dermatitis, unspecified; M15.0 Primary generalized (osteo)arthritis; F32.0 Major depressive disorder, single episode, mild; Z91.09 Other allergy status, other than to drugs and biological substances; Z85.9 Personal history of malignant neoplasm, unspecified

== ENCOUNTER → 2019-06-08 | Outpatient (CLI) | payer SELFPAY | END | disposition home or self-care (01) | LOC: RESCLI 01:04 | DX: I10 Essential (primary) hypertension (principal); M15.0 Primary generalized (osteo)arthritis; M1A.0790 Idiopathic chronic gout, unspecified ankle and foot, without tophus (tophi); E78.2 Mixed hyperlipidemia; L30.9 Dermatitis, unspecified; K21.9 Gastro-esophageal reflux disease without esophagitis; M54.5 Low back pain; G89.29 Other chronic pain; M25.561 Pain in right knee; M25.562 Pain in left knee; E66.01 Morbid (severe) obesity due to excess calories; G62.9 Polyneuropathy, unspecified; F32.0 Major depressive disorder, single episode, mild; Z85.9 Personal history of malignant neoplasm, unspecified; E55.9 Vitamin D deficiency, unspecified; E66.9 Obesity, unspecified; R20.2 Paresthesia of skin; Z79.899 Other long term (current) drug therapy; Z91.09 Other allergy status, other than to drugs and biological substances; Z88.0 Allergy status to penicillin ==

== ENCOUNTER → 2019-06-15 | Outpatient (CLI) | payer SELFPAY | END | disposition home or self-care (01) | LOC: RESCLI 09:47 | DX: Z23 Encounter for immunization (principal); I10 Essential (primary) hypertension; E78.5 Hyperlipidemia, unspecified; K21.9 Gastro-esophageal reflux disease without esophagitis; F32.9 Major depressive disorder, single episode, unspecified; Z79.1 Long term (current) use of non-steroidal anti-inflammatories (NSAID); Z79.899 Other long term (current) drug therapy ==

== ENCOUNTER → 2019-08-17 | Outpatient (CLI) | payer SELFPAY | END | disposition home or self-care (01) | LOC: RESCLI 00:47 | DX: Z12.5 Encounter for screening for malignant neoplasm of prostate (principal); Z12.11 Encounter for screening for malignant neoplasm of colon; I10 Essential (primary) hypertension; M1A.0790 Idiopathic chronic gout, unspecified ankle and foot, without tophus (tophi); E78.2 Mixed hyperlipidemia; E55.9 Vitamin D deficiency, unspecified; M54.5 Low back pain; L30.9 Dermatitis, unspecified; D50.9 Iron deficiency anemia, unspecified; N35.911 Unspecified urethral stricture, male, meatal; K21.9 Gastro-esophageal reflux disease without esophagitis; F32.9 Major depressive disorder, single episode, unspecified; M19.90 Unspecified osteoarthritis, unspecified site; Z79.899 Other long term (current) drug therapy; Z98.890 Other specified postprocedural states; Z88.0 Allergy status to penicillin; Z85.828 Personal history of other malignant neoplasm of skin ==

== ENCOUNTER → 2019-12-02 | Outpatient (CLI) | payer OTHER | END | disposition home or self-care (01) | LOC: RESCLI 00:52 | DX: M1A.0790 Idiopathic chronic gout, unspecified ankle and foot, without tophus (tophi) (principal); E78.2 Mixed hyperlipidemia; E55.9 Vitamin D deficiency, unspecified; L30.9 Dermatitis, unspecified; I10 Essential (primary) hypertension; K21.9 Gastro-esophageal reflux disease without esophagitis; M54.5 Low back pain; Z12.11 Encounter for screening for malignant neoplasm of colon; Z12.5 Encounter for screening for malignant neoplasm of prostate; Z90.49 Acquired absence of other specified parts of digestive tract; Z98.890 Other specified postprocedural states; Z79.899 Other long term (current) drug therapy; Z88.0 Allergy status to penicillin ==

== ENCOUNTER → 2020-02-29 | Outpatient (CLI) | payer OTHER | END | disposition home or self-care (01) | LOC: RESCLI 01:16 | PROVIDERS: ATTEND Family Medicine | DX: M1A.0790 Idiopathic chronic gout, unspecified ankle and foot, without tophus (tophi) (principal); L30.9 Dermatitis, unspecified; E55.9 Vitamin D deficiency, unspecified; E78.2 Mixed hyperlipidemia; I10 Essential (primary) hypertension; K21.9 Gastro-esophageal reflux disease without esophagitis; Z79.899 Other long term (current) drug therapy; Z98.890 Other specified postprocedural states ==

== ENCOUNTER → 2020-04-07 | Outpatient (CLI) | payer OTHER ==
[2020-04-07 08:38] LABS: BASO # 0.1 10*3/uL (0.0-0.1); BASO % 1.4 % (0.0-1.0); EOS # 0.1 10*3/uL (0.0-0.4); EOS % 2.5 % (1.0-4.0); HEMATOCRIT 47.7 % (42.0-52.0); LYMPH # 1.8 10*3/uL (1.3-4.4); LYMPH % 31.8 % (27.0-41.0); MEAN CELL VOLUME 89.3 fl (80.0-94.0); MEAN CORPUSCULAR HGB 30.1 pg (27.0-31.0); MEAN CORPUSCULAR HGB CONC 33.8 g/dl (33.0-37.0); MEAN PLATELET VOLUME 9.9 fl (9.6-12.3); MONO # 0.5 10*3/uL (0.1-1.0); MONO % 9.1 % (3.0-9.0); NEUT # 3.1 10*3/uL (2.3-7.9); PLATELET COUNT AUTOMATED 251 10*3/uL (130-400); RED BLOOD COUNT 5.34 10*6/uL (4.50-5.90); RED CELL DISTRI WIDTH 12.8 % (0-14.5); WHITE BLOOD COUNT 5.6 10*3/uL (4.8-10.8)
[2020-04-07 08:59] LABS: ALBUMIN 3.5 gm/dl (3.1-4.5); ALKALINE PHOSPHATASE 77 U/L (45-117); BUN 14 mg/dl (7-24); CHLORIDE 109 mmol/L (98-107); CHOLESTEROL 186 mg/dL (<200); CREATININE 1.04 mg/dL (0.70-1.30); HDL CHOLESTEROL 33 mg/dl (40-60); LDL CHOLESTEROL 102 mg/dL (9-159); POTASSIUM 3.9 mmol/L (3.5-5.1); SGOT/AST 19 IU/L (3-35); SGPT/ALT 33 U/L (12-78); SODIUM 141 mmol/L (136-145); TOTAL PROTEIN 7.4 gm/dL (6.4-8.2); TRIGLYCERIDES 257 mg/dl (<150); VLDL CHOLESTEROL 51 mg/dL (6-40)
[2020-04-07 09:49] LABS: VITAMIN D, 25-HYDROXY 22.4 ng/mL (30-100)
== END | disposition home or self-care (01) ==
LOC: RESCLI 00:49
PROVIDERS: Student in an Organized Health Care Education/Training Program; ATTEND Student in an Organized Health Care Education/Training Program
DX: K21.9 Gastro-esophageal reflux disease without esophagitis (principal); M1A.0790 Idiopathic chronic gout, unspecified ankle and foot, without tophus (tophi); L30.9 Dermatitis, unspecified; E78.2 Mixed hyperlipidemia; I10 Essential (primary) hypertension; E55.9 Vitamin D deficiency, unspecified; R21 Rash and other nonspecific skin eruption; Z12.11 Encounter for screening for malignant neoplasm of colon; Z79.899 Other long term (current) drug therapy; Z98.890 Other specified postprocedural states; Z88.0 Allergy status to penicillin

== ENCOUNTER → 2020-08-10 | Outpatient (CLI) | payer OTHER | END | disposition home or self-care (01) | LOC: RESCLI 00:49 | PROVIDERS: ATTEND Internal Medicine | DX: K21.9 Gastro-esophageal reflux disease without esophagitis (principal); R21 Rash and other nonspecific skin eruption; L30.9 Dermatitis, unspecified; E78.2 Mixed hyperlipidemia; E55.9 Vitamin D deficiency, unspecified; I10 Essential (primary) hypertension; M1A.0790 Idiopathic chronic gout, unspecified ankle and foot, without tophus (tophi); E66.9 Obesity, unspecified; M19.90 Unspecified osteoarthritis, unspecified site; F32.9 Major depressive disorder, single episode, unspecified; Z79.899 Other long term (current) drug therapy; Z85.828 Personal history of other malignant neoplasm of skin; Z82.3 Family history of stroke; Z88.0 Allergy status to penicillin ==

== ENCOUNTER → 2020-08-28 | Outpatient (CLI) | payer OTHER | END | disposition home or self-care (01) | LOC: LAB 11:07 | PROVIDERS: ATTEND Internal Medicine | DX: E66.9 Obesity, unspecified (principal) ==

== ENCOUNTER → 2020-10-16 | Outpatient (CLI) | payer OTHER ==
[2020-10-16 15:49] LABS: BASO # 0.1 10*3/uL (0.0-0.1); BASO % 0.9 % (0.0-1.0); EOS # 0.1 10*3/uL (0.0-0.4); EOS % 1.4 % (1.0-4.0); HEMATOCRIT 48.9 % (42.0-52.0); LYMPH % 23.1 % (27.0-41.0); MEAN CELL VOLUME 89.9 fl (80.0-94.0); MEAN CORPUSCULAR HGB 30.7 pg (27.0-31.0); MEAN CORPUSCULAR HGB CONC 34.2 g/dl (33.0-37.0); MEAN PLATELET VOLUME 9.8 fl (9.6-12.3); MONO # 0.8 10*3/uL (0.1-1.0); MONO % 8.6 % (3.0-9.0); NEUT # 5.8 10*3/uL (2.3-7.9); NEUT % 65.8 % (47.0-73.0); PLATELET COUNT AUTOMATED 281 10*3/uL (130-400); RED BLOOD COUNT 5.44 10*6/uL (4.50-5.90); RED CELL DISTRI WIDTH 12.7 % (0-14.5); WHITE BLOOD COUNT 8.8 10*3/uL (4.8-10.8)
[2020-10-16 16:20] LABS: ALBUMIN 4.1 gm/dl (3.1-4.5); BUN 13 mg/dl (7-24); CHLORIDE 106 mmol/L (98-107); CREATININE 1.14 mg/dL (0.70-1.30); SGOT/AST 22 IU/L (3-35); SGPT/ALT 40 U/L (12-78); SODIUM 137 mmol/L (136-145); TOTAL PROTEIN 8.2 gm/dL (6.4-8.2)
[2020-10-16 16:21] LABS: ALKALINE PHOSPHATASE 111 U/L (45-117)
== END | disposition home or self-care (01) ==
LOC: RESCLI 01:37
PROVIDERS: ATTEND Internal Medicine Nephrology
DX: R10.32 Left lower quadrant pain (principal); H93.13 Tinnitus, bilateral; L30.9 Dermatitis, unspecified; E78.2 Mixed hyperlipidemia; E55.9 Vitamin D deficiency, unspecified; I10 Essential (primary) hypertension; M1A.0790 Idiopathic chronic gout, unspecified ankle and foot, without tophus (tophi); K21.9 Gastro-esophageal reflux disease without esophagitis; Z79.899 Other long term (current) drug therapy; Z98.890 Other specified postprocedural states; Z88.0 Allergy status to penicillin; Z72.0 Tobacco use

== ENCOUNTER → 2020-11-22 | Outpatient (CLI) | payer OTHER | END | disposition home or self-care (01) | LOC: RESCLI 01:09 | PROVIDERS: ATTEND Internal Medicine Nephrology | DX: L30.9 Dermatitis, unspecified (principal); E78.2 Mixed hyperlipidemia; E59 Dietary selenium deficiency; I10 Essential (primary) hypertension; M1A.0790 Idiopathic chronic gout, unspecified ankle and foot, without tophus (tophi); K21.9 Gastro-esophageal reflux disease without esophagitis; H61.23 Impacted cerumen, bilateral; F32.9 Major depressive disorder, single episode, unspecified; E78.5 Hyperlipidemia, unspecified; M81.0 Age-related osteoporosis without current pathological fracture; Z79.899 Other long term (current) drug therapy; Z88.8 Allergy status to other drugs, medicaments and biological substances ==

== ENCOUNTER → 2021-02-21 | Outpatient (CLI) | payer OTHER | END | disposition home or self-care (01) | LOC: RESCLI 02:43 | PROVIDERS: ATTEND Student in an Organized Health Care Education/Training Program | DX: R51.9 Headache, unspecified (principal); M79.2 Neuralgia and neuritis, unspecified; H61.23 Impacted cerumen, bilateral; H93.13 Tinnitus, bilateral; K21.9 Gastro-esophageal reflux disease without esophagitis; I10 Essential (primary) hypertension; F32.9 Major depressive disorder, single episode, unspecified; M19.90 Unspecified osteoarthritis, unspecified site; M10.9 Gout, unspecified; M54.5 Low back pain; Z79.899 Other long term (current) drug therapy; Z98.890 Other specified postprocedural states ==

== ENCOUNTER → 2021-03-07 | Outpatient (CLI) | payer OTHER | END | disposition home or self-care (01) | LOC: RESCLI 00:22 | PROVIDERS: ATTEND Student in an Organized Health Care Education/Training Program | DX: H93.13 Tinnitus, bilateral (principal); M54.5 Low back pain; I10 Essential (primary) hypertension; K21.9 Gastro-esophageal reflux disease without esophagitis; M1A.0790 Idiopathic chronic gout, unspecified ankle and foot, without tophus (tophi); E55.9 Vitamin D deficiency, unspecified; E78.2 Mixed hyperlipidemia; L30.9 Dermatitis, unspecified; H61.23 Impacted cerumen, bilateral ==

== ENCOUNTER → 2021-05-23 | Outpatient (CLI) | payer OTHER | END | disposition home or self-care (01) | LOC: RESCLI 00:35 | PROVIDERS: ATTEND Emergency Medicine | DX: K21.9 Gastro-esophageal reflux disease without esophagitis (principal); M1A.0790 Idiopathic chronic gout, unspecified ankle and foot, without tophus (tophi); E55.9 Vitamin D deficiency, unspecified; E78.2 Mixed hyperlipidemia; L30.9 Dermatitis, unspecified; I10 Essential (primary) hypertension; Z79.899 Other long term (current) drug therapy; Z98.890 Other specified postprocedural states ==

== ENCOUNTER → 2021-09-26 | Outpatient (CLI) | payer OTHER ==
[2021-09-26 11:55] LABS: BASO # 0.1 10*3/uL (0.0-0.1); BASO % 1.1 % (0.0-1.0); EOS # 0.3 10*3/uL (0.0-0.4); EOS % 4.3 % (1.0-4.0); HEMATOCRIT 45.9 % (42.0-52.0); LYMPH # 1.6 10*3/uL (1.3-4.4); LYMPH % 22.8 % (27.0-41.0); MEAN CELL VOLUME 88.3 fl (80.0-94.0); MEAN CORPUSCULAR HGB 30.2 pg (27.0-31.0); MEAN CORPUSCULAR HGB CONC 34.2 g/dl (33.0-37.0); MEAN PLATELET VOLUME 10.3 fl (9.6-12.3); MONO # 0.5 10*3/uL (0.1-1.0); MONO % 7.7 % (3.0-9.0); NEUT # 4.5 10*3/uL (2.3-7.9); NEUT % 63.7 % (47.0-73.0); PLATELET COUNT AUTOMATED 258 10*3/uL (130-400); RED CELL DISTRI WIDTH 13.1 % (0-14.5)
[2021-09-26 12:12] LABS: ALKALINE PHOSPHATASE 110 U/L (45-117); BUN 10 mg/dl (7-24); CHLORIDE 108 mmol/L (98-107); CREATININE 1.03 mg/dL (0.70-1.30); SGOT/AST 43 IU/L (3-35); SGPT/ALT 32 U/L (12-78); SODIUM 139 mmol/L (136-145); TOTAL PROTEIN 7.7 gm/dL (6.4-8.2)
== END | disposition home or self-care (01) ==
LOC: RESCLI 02:18
PROVIDERS: Internal Medicine; ATTEND Family Medicine
DX: M19.031 Primary osteoarthritis, right wrist (principal); M77.8 Other enthesopathies, not elsewhere classified; E55.9 Vitamin D deficiency, unspecified; E78.2 Mixed hyperlipidemia; L30.9 Dermatitis, unspecified; I10 Essential (primary) hypertension; J01.90 Acute sinusitis, unspecified; M1A.0790 Idiopathic chronic gout, unspecified ankle and foot, without tophus (tophi); K21.9 Gastro-esophageal reflux disease without esophagitis; M26.609 Unspecified temporomandibular joint disorder, unspecified side; M77.01 Medial epicondylitis, right elbow; M79.601 Pain in right arm; Z88.0 Allergy status to penicillin; Z88.8 Allergy status to other drugs, medicaments and biological substances; Z79.899 Other long term (current) drug therapy; Z98.890 Other specified postprocedural states

== ENCOUNTER → 2021-10-31 | Outpatient (CLI) | payer OTHER | END | disposition home or self-care (01) | LOC: RESCLI 10-30 01:21 | PROVIDERS: ATTEND Internal Medicine | DX: M77.10 Lateral epicondylitis, unspecified elbow (principal); J32.9 Chronic sinusitis, unspecified; R51.9 Headache, unspecified; E78.5 Hyperlipidemia, unspecified; I10 Essential (primary) hypertension; K21.9 Gastro-esophageal reflux disease without esophagitis; E55.9 Vitamin D deficiency, unspecified; Z79.899 Other long term (current) drug therapy ==

== ENCOUNTER 2022-08-17 08:53 | Emergency (ER) | payer OTHER ==
[~2022-08-17] VITALS: Ht 190.5 cm; Wt 140.6 kg
[2022-08-17 09:26] LABS: BASO # 0.1 10*3/uL (0.0-0.1); BASO % 0.4 % (0.0-1.0); EOS # 0.1 10*3/uL (0.0-0.4); HEMATOCRIT 47.6 % (42.0-52.0); LYMPH # 1.1 10*3/uL (1.3-4.4); MEAN CORPUSCULAR HGB 30.5 pg (27.0-31.0); MEAN CORPUSCULAR HGB CONC 34.2 g/dl (33.0-37.0); MEAN PLATELET VOLUME 9.7 fl (9.6-12.3); MONO # 0.9 10*3/uL (0.1-1.0); MONO % 7.6 % (3.0-9.0); NEUT # 9.1 10*3/uL (2.3-7.9); NEUT % 80.7 % (47.0-73.0); PLATELET COUNT AUTOMATED 199 10*3/uL (130-400); RED BLOOD COUNT 5.35 10*6/uL (4.50-5.90); WHITE BLOOD COUNT 11.3 10*3/uL (4.8-10.8)
[2022-08-17 09:48] LABS: ALKALINE PHOSPHATASE 73 U/L (46-116); BUN 13 mg/dl (9-23); CHLORIDE 105 mmol/L (98-107); POTASSIUM 4.1 mmol/L (3.4-5.1); SGPT/ALT 12 U/L (10-49); TOTAL PROTEIN 7.4 gm/dL (6.0-8.0)
[2022-08-17] MEDS ORDERED: AVPAK AZITHROM250 M1 PO (11:03)
== END 2022-08-17 11:08 | disposition home or self-care (01) ==
LOC: ED 08:53
PROVIDERS: Emergency Medicine
DX: J40 Bronchitis, not specified as acute or chronic (principal); J32.9 Chronic sinusitis, unspecified; I10 Essential (primary) hypertension; F41.9 Anxiety disorder, unspecified; Z88.0 Allergy status to penicillin; Z90.89 Acquired absence of other organs; Z98.890 Other specified postprocedural states; Z20.822 Contact with and (suspected) exposure to COVID-19; Z88.6 Allergy status to analgesic agent

== ENCOUNTER 2022-10-09 12:23 | Emergency (ER) | payer OTHER, MEDICAID ==
[~2022-10-09] VITALS: Wt 133.8 kg
[~2022-10-09 12:23] MED LIST changes: -Cleocin150 MG PO
[2022-10-09 13:21] LABS: BASO # 0.1 10*3/uL (0.0-0.1); BASO % 1.5 % (0.0-1.0); EOS # 0.1 10*3/uL (0.0-0.4); HEMATOCRIT 45.8 % (42.0-52.0); LYMPH # 1.6 10*3/uL (1.3-4.4); LYMPH % 24.3 % (27.0-41.0); MEAN CELL VOLUME 87.4 fl (80.0-94.0); MEAN CORPUSCULAR HGB 31.3 pg (27.0-31.0); MEAN CORPUSCULAR HGB CONC 35.8 g/dl (33.0-37.0); MEAN PLATELET VOLUME 9.8 fl (9.6-12.3); MONO # 0.8 10*3/uL (0.1-1.0); NEUT # 3.9 10*3/uL (2.3-7.9); PLATELET COUNT AUTOMATED 217 10*3/uL (130-400); RED BLOOD COUNT 5.24 10*6/uL (4.50-5.90); RED CELL DISTRI WIDTH 12.7 % (0-14.5); WHITE BLOOD COUNT 6.5 10*3/uL (4.8-10.8)
[2022-10-09 13:40] LABS: ALKALINE PHOSPHATASE 74 U/L (46-116); BUN 17 mg/dl (9-23); CHLORIDE 106 mmol/L (98-107); POTASSIUM 3.9 mmol/L (3.4-5.1); SGPT/ALT 19 U/L (10-49); TOTAL PROTEIN 7.3 gm/dL (6.0-8.0)
[2022-10-09] MEDS ORDERED: Cleocin150 MG PO (15:29)
== END 2022-10-09 16:33 | disposition home or self-care (01) ==
LOC: ED 12:23
PROVIDERS: Student in an Organized Health Care Education/Training Program
DX: M27.2 Inflammatory conditions of jaws (principal); I10 Essential (primary) hypertension; F41.9 Anxiety disorder, unspecified; M10.9 Gout, unspecified; Z88.0 Allergy status to penicillin; Z88.6 Allergy status to analgesic agent; Z90.89 Acquired absence of other organs; Z98.890 Other specified postprocedural states

== ENCOUNTER → 2022-10-09 | Outpatient (CLI) | payer OTHER ==
[~2022-10-09] MED LIST changes: +AVPAK AZITHROM250 M1 PO; +Cleocin150 MG PO
== END | disposition home or self-care (01) ==
LOC: RESCLI 02:05
PROVIDERS: ATTEND Internal Medicine
DX: K21.9 Gastro-esophageal reflux disease without esophagitis (principal); M77.01 Medial epicondylitis, right elbow; I10 Essential (primary) hypertension; E78.2 Mixed hyperlipidemia; L30.9 Dermatitis, unspecified; M1A.0790 Idiopathic chronic gout, unspecified ankle and foot, without tophus (tophi); E55.9 Vitamin D deficiency, unspecified; K08.89 Other specified disorders of teeth and supporting structures; Z82.3 Family history of stroke; Z98.890 Other specified postprocedural states; Z79.899 Other long term (current) drug therapy

== ENCOUNTER → 2022-11-13 | Outpatient (CLI) | payer OTHER, MEDICAID ==
[~2022-11-13] MED LIST changes: +Cleocin150 MG PO
== END | disposition home or self-care (01) ==
LOC: RESCLI 00:58
PROVIDERS: ATTEND Internal Medicine
DX: F32.9 Major depressive disorder, single episode, unspecified (principal); M54.50 Low back pain, unspecified; M77.01 Medial epicondylitis, right elbow; K21.9 Gastro-esophageal reflux disease without esophagitis; I10 Essential (primary) hypertension; E78.2 Mixed hyperlipidemia; L30.9 Dermatitis, unspecified; M1A.0790 Idiopathic chronic gout, unspecified ankle and foot, without tophus (tophi); E55.9 Vitamin D deficiency, unspecified; K04.7 Periapical abscess without sinus; Z82.3 Family history of stroke; Z88.8 Allergy status to other drugs, medicaments and biological substances; Z98.890 Other specified postprocedural states; M51.36 Other intervertebral disc degeneration, lumbar region; Z79.899 Other long term (current) drug therapy

== ENCOUNTER → 2023-03-19 | Outpatient (CLI) | payer OTHER, MEDICAID ==
[2023-03-19 10:26] LABS: BASO # 0.1 10*3/uL (0.0-0.1); EOS # 0.2 10*3/uL (0.0-0.4); EOS % 3.4 % (1.0-4.0); HEMATOCRIT 46.4 % (42.0-52.0); LYMPH # 1.6 10*3/uL (1.3-4.4); MEAN CELL VOLUME 89.6 fl (80.0-94.0); MEAN CORPUSCULAR HGB 31.1 pg (27.0-31.0); MEAN CORPUSCULAR HGB CONC 34.7 g/dl (33.0-37.0); MEAN PLATELET VOLUME 9.7 fl (9.6-12.3); MONO # 0.6 10*3/uL (0.1-1.0); MONO % 8.3 % (3.0-9.0); NEUT # 4.5 10*3/uL (2.3-7.9); NEUT % 64.2 % (47.0-73.0); PLATELET COUNT AUTOMATED 244 10*3/uL (130-400); RED BLOOD COUNT 5.18 10*6/uL (4.50-5.90); RED CELL DISTRI WIDTH 12.6 % (0-14.5)
[2023-03-19 10:56] LABS: ALKALINE PHOSPHATASE 89 U/L (46-116); BUN 13 mg/dl (9-23); CHLORIDE 106 mmol/L (98-107); CHOLESTEROL 158 mg/dL (<200); LDL CHOLESTEROL 83 mg/dL (9-159); POTASSIUM 3.9 mmol/L (3.4-5.1); SGPT/ALT 25 U/L (10-49); TOTAL PROTEIN 7.6 gm/dL (6.0-8.0); TRIGLYCERIDES 217 mg/dl (<150)
== END | disposition home or self-care (01) ==
LOC: LAB 10:03
PROVIDERS: ATTEND Internal Medicine
DX: I10 Essential (primary) hypertension (principal); E78.2 Mixed hyperlipidemia; D50.9 Iron deficiency anemia, unspecified; G62.9 Polyneuropathy, unspecified; Z79.899 Other long term (current) drug therapy

== ENCOUNTER 2023-09-05 10:43 | Inpatient (IN) | payer OTHER, MEDICAID ==
[~2023-09-05] VITALS: Ht 191 cm; Wt 134.9 kg
[2023-09-05 10:49] VITALS: BP 150/83
[2023-09-05] MEDS ORDERED: Ondansetron Hydrochloride 4 MG/2 ML VIAL IV ONE (11:00)
[2023-09-05] MEDS ORDERED: MORPHINE Sulfate 2 MG/ML SYR IV ONE (11:05)
[2023-09-05 11:33] LABS: BASO # 0.1 10*3/uL (0.0-0.1); BASO % 1.4 % (0.0-1.0); EOS # 0.2 10*3/uL (0.0-0.4); EOS % 3.1 % (1.0-4.0); HEMATOCRIT 44.8 % (42.0-52.0); LYMPH # 1.6 10*3/uL (1.3-4.4); LYMPH % 28.5 % (27.0-41.0); MEAN CELL VOLUME 90.3 fl (80.0-94.0); MEAN CORPUSCULAR HGB 30.6 pg (27.0-31.0); MEAN CORPUSCULAR HGB CONC 33.9 g/dl (33.0-37.0); MEAN PLATELET VOLUME 9.8 fl (9.6-12.3); MONO # 0.6 10*3/uL (0.1-1.0); MONO % 9.7 % (3.0-9.0); NEUT # 3.3 10*3/uL (2.3-7.9); NEUT % 57.1 % (47.0-73.0); PLATELET COUNT AUTOMATED 230 10*3/uL (130-400); RED BLOOD COUNT 4.96 10*6/uL (4.50-5.90); RED CELL DISTRI WIDTH 12.4 % (0-14.5); WHITE BLOOD COUNT 5.8 10*3/uL (4.8-10.8)
[2023-09-05 11:48] LABS: ACT PARTIAL THROMBO TIME 28.7 SECONDS (20.0-32.1)
[2023-09-05 11:53] LABS: BUN 10 mg/dl (9-23); CHLORIDE 105 mmol/L (98-107); POTASSIUM 3.9 mmol/L (3.4-5.1)
[2023-09-05] MEDS ORDERED: FUROSEMIDE 20 MG/2 ML VIAL IV ONE (11:55)
[2023-09-05] MEDS ORDERED: CARVEDILOL3.125 MG PO (12:32)
[2023-09-05] MEDS ORDERED: PANTOPRAZOLE SO40 MG PO (12:32)
[2023-09-05] MEDS ORDERED: CLARITIN10 MG PO (12:41)
[2023-09-05] MEDS ORDERED: AMLODIPINE BESYL5 MG PO (12:42)
[2023-09-05] MEDS ORDERED: KLOR-CON M2020 ME1 PO (12:44)
[2023-09-05] MEDS ORDERED: SODIUM CHLORIDE 0.9% 100 ML BAG IV ONE (12:45)
[2023-09-05] MEDS ORDERED: IOHEXOL 350 MG/ML 100 ML VIAL IV ONE (12:45)
[2023-09-05] MEDS ORDERED: Acetaminophen/Oxycodone 5 MG/325 MG TABLET PO ONE (14:10)
[2023-09-05 14:31] VITALS: BP 110/73
[2023-09-05] MEDS ORDERED: Ondansetron Hydrochloride 4 MG/2 ML VIAL IV PRN (15:05)
[2023-09-05] MEDS ORDERED: ACETAMINOPHEN 325 MG TAB PO PRN (15:05)
[2023-09-05] MEDS ORDERED: BISACODYL 5 MG TAB PO PRN (15:05)
[2023-09-05] MEDS ORDERED: MORPHINE Sulfate 2 MG/ML SYR IV PRN (15:05)
[2023-09-05] MEDS ORDERED: NITROGLYCERIN 0.4 MG BOT SL SCH (15:30)
[2023-09-05] MEDS ORDERED: VITAMIN D250 MCG PO (16:01)
[2023-09-05 16:34] VITALS: BP 130/80
[2023-09-05] MEDS ORDERED: LORATADINE 10 MG TAB PO SCH (18:00)
[2023-09-05 20:00] VITALS: BP 120/80
[2023-09-05] MEDS ORDERED: CARVEDILOL 3.125 MG TAB PO SCH (22:00)
[2023-09-05] MEDS ORDERED: Acetaminophen/Hydrocodone 5 MG/325 MG TABLET PO PRN (22:00)
[2023-09-05] MEDS ORDERED: amLODIPine besylate 5 MG TAB PO SCH (22:00)
[2023-09-06] VITALS: BP 123/80
[2023-09-06 05:53] LABS: BUN 12 mg/dl (9-23); CHLORIDE 104 mmol/L (98-107); POTASSIUM 3.8 mmol/L (3.4-5.1)
[2023-09-06] MEDS ORDERED: Pantoprazole Sodium 40 MG TAB PO SCH (06:00)
[2023-09-06 06:02] LABS: BASO # 0.1 10*3/uL (0.0-0.1); BASO % 1.1 % (0.0-1.0); EOS # 0.3 10*3/uL (0.0-0.4); EOS % 3.3 % (1.0-4.0); HEMATOCRIT 46.3 % (42.0-52.0); LYMPH # 2.8 10*3/uL (1.3-4.4); MEAN CELL VOLUME 91.3 fl (80.0-94.0); MEAN CORPUSCULAR HGB 30.4 pg (27.0-31.0); MEAN CORPUSCULAR HGB CONC 33.3 g/dl (33.0-37.0); MEAN PLATELET VOLUME 10.4 fl (9.6-12.3); MONO # 0.9 10*3/uL (0.1-1.0); MONO % 11.3 % (3.0-9.0); NEUT # 3.9 10*3/uL (2.3-7.9); NEUT % 49.2 % (47.0-73.0); PLATELET COUNT AUTOMATED 233 10*3/uL (130-400); RED BLOOD COUNT 5.07 10*6/uL (4.50-5.90); RED CELL DISTRI WIDTH 12.6 % (0-14.5); WHITE BLOOD COUNT 7.9 10*3/uL (4.8-10.8)
[2023-09-06 08:00] VITALS: BP 113/65
[2023-09-06] MEDS ORDERED: LISINOPRIL 40 MG TAB PO SCH (10:00)
[2023-09-06] MEDS ORDERED: ALLOPURINOL 100 MG TAB PO SCH (10:00)
[2023-09-06] MEDS ORDERED: Enoxaparin Sodium 40 MG/0.4 ML SYR SC SCH (10:00)
[2023-09-06] MEDS ORDERED: ATORVASTATIN CALCIUM 10 MG TAB PO SCH (10:00)
[2023-09-06] MEDS ORDERED: LORATADINE 10 MG TAB PO SCH (10:00)
[2023-09-06 12:00] VITALS: BP 123/62
[2023-09-06 16:00] VITALS: BP 140/76
[2023-09-06 20:00] VITALS: BP 122/66
[2023-09-06] MEDS ORDERED: AQUAPHOR OINTMENT Base 50 GM TUBE T SCH (22:00)
[2023-09-07] VITALS: BP 117/68
[2023-09-07 08:00] VITALS: BP 124/65
[2023-09-07 12:00] VITALS: BP 127/69
[2023-09-07 16:00] VITALS: BP 118/74
[2023-09-07 20:00] VITALS: BP 114/67
[2023-09-08] VITALS: BP 132/70
[2023-09-08] MEDS ORDERED: Regadenoson 0.4 MG/5 ML SYR IV ONE (06:40)
[2023-09-08 08:00] VITALS: BP 103/66
[2023-09-08] MEDS ORDERED: PERFLUTREN PROTEIN-A MICROSPHR 3 ML VIAL IV ONE (08:05)
[2023-09-08 12:00] VITALS: BP 137/76
[2023-09-08] MEDS ORDERED: ASPIRIN 325 MG TAB PO ONE (15:05)
[2023-09-08] MEDS ORDERED: GOOD SENSE ASP325 MG PO (15:06)
[2023-09-08 16:00] VITALS: BP 131/72
[2023-09-08 20:00] VITALS: BP 123/80
[2023-09-09] VITALS: BP 131/71
[2023-09-09 06:30] LABS: BASO # 0.1 10*3/uL (0.0-0.1); EOS # 0.3 10*3/uL (0.0-0.4); EOS % 3.7 % (1.0-4.0); HEMATOCRIT 44.7 % (42.0-52.0); LYMPH # 2.3 10*3/uL (1.3-4.4); LYMPH % 30.6 % (27.0-41.0); MEAN CORPUSCULAR HGB 30.8 pg (27.0-31.0); MEAN CORPUSCULAR HGB CONC 33.8 g/dl (33.0-37.0); MEAN PLATELET VOLUME 10.4 fl (9.6-12.3); MONO # 0.9 10*3/uL (0.1-1.0); MONO % 11.3 % (3.0-9.0); NEUT # 4.1 10*3/uL (2.3-7.9); NEUT % 53.3 % (47.0-73.0); PLATELET COUNT AUTOMATED 225 10*3/uL (130-400); RED BLOOD COUNT 4.91 10*6/uL (4.50-5.90); RED CELL DISTRI WIDTH 12.4 % (0-14.5); WHITE BLOOD COUNT 7.6 10*3/uL (4.8-10.8)
[2023-09-09 07:09] LABS: ALKALINE PHOSPHATASE 76 U/L (46-116); BUN 12 mg/dl (9-23); CHLORIDE 105 mmol/L (98-107); POTASSIUM 3.7 mmol/L (3.4-5.1); SGPT/ALT 30 U/L (5-49); TOTAL PROTEIN 6.8 gm/dL (6.0-8.0)
[2023-09-09 08:00] VITALS: BP 112/72
[2023-09-09] MEDS ORDERED: ASPIRIN ENTERIC COATED 81 MG TAB PO SCH (10:00)
[2023-09-09 11:58] VITALS: BP 101/72
== END 2023-09-09 12:00 | disposition short-term general hospital (02) | DRG 311 ==
LOC: ED 10:43 → EDHOLD 14:19 → 4E 14:19 → EDHOLD 14:20 → 4E 14:35
PROVIDERS: Internal Medicine Cardiovascular Disease; Nurse Practitioner; Registered Nurse; ADMIT Internal Medicine; ATTEND Internal Medicine
PROC: 4A02XM4 Measurement of Cardiac Total Activity, External Approach (ICD-10-PCS; principal; 2023-09-08)
PROC: 3E073KZ Introduction of Other Diagnostic Substance into Coronary Artery, Percutaneous Approach (ICD-10-PCS; 2023-09-08)
DX: I20.89 Other forms of angina pectoris (principal); K21.9 Gastro-esophageal reflux disease without esophagitis; I10 Essential (primary) hypertension; M10.9 Gout, unspecified; E66.9 Obesity, unspecified; E78.01 Familial hypercholesterolemia; Z71.3 Dietary counseling and surveillance; Z68.37 Body mass index [BMI] 37.0-37.9, adult; Z88.0 Allergy status to penicillin; Z88.8 Allergy status to other drugs, medicaments and biological substances; Z82.3 Family history of stroke; Z79.899 Other long term (current) drug therapy

== ENCOUNTER → 2024-06-22 | Outpatient (CLI) | payer OTHER, MEDICAID ==
[~2024-06-22] MED LIST changes: +AMLODIPINE BESYL5 MG PO; +CARVEDILOL3.125 MG PO; +GOOD SENSE ASP325 MG PO; +KLOR-CON M2020 ME1 PO; +PANTOPRAZOLE SO40 MG PO; +VITAMIN D250 MCG PO
[2024-06-22 10:24] LABS: BASO # 0.1 10*3/uL (0.0-0.1); EOS # 0.3 10*3/uL (0.0-0.4); EOS % 3.5 % (1.0-4.0); HEMATOCRIT 47.4 % (42.0-52.0); MEAN CELL VOLUME 92.6 fl (80.0-94.0); MEAN CORPUSCULAR HGB 30.1 pg (27.0-31.0); MEAN CORPUSCULAR HGB CONC 32.5 g/dl (33.0-37.0); MEAN PLATELET VOLUME 9.6 fl (9.6-12.3); MONO # 0.5 10*3/uL (0.1-1.0); MONO % 6.4 % (3.0-9.0); NEUT # 5.2 10*3/uL (2.3-7.9); NEUT % 67.9 % (47.0-73.0); PLATELET COUNT AUTOMATED 229 10*3/uL (130-400); RED BLOOD COUNT 5.12 10*6/uL (4.50-5.90); RED CELL DISTRI WIDTH 12.8 % (0-14.5); WHITE BLOOD COUNT 7.7 10*3/uL (4.8-10.8)
[2024-06-22 10:55] LABS: ALKALINE PHOSPHATASE 95 U/L (46-116); BUN 10 mg/dl (9-23); CHLORIDE 105 mmol/L (98-107); CHOLESTEROL 90 mg/dL (<200); LDL CHOLESTEROL 36 mg/dL (9-159); POTASSIUM 4.3 mmol/L (3.4-5.1); SGPT/ALT 12 U/L (5-49); TOTAL PROTEIN 7.6 gm/dL (6.0-8.0)
[2024-06-22 10:56] LABS: VITAMIN D, 25-HYDROXY 32.6 ng/mL (30-100)
== END | disposition home or self-care (01) ==
LOC: LAB 09:58
PROVIDERS: ATTEND Internal Medicine
DX: I10 Essential (primary) hypertension (principal); E78.2 Mixed hyperlipidemia; E55.9 Vitamin D deficiency, unspecified; G62.9 Polyneuropathy, unspecified; E11.9 Type 2 diabetes mellitus without complications

== ENCOUNTER → 2024-10-28 | Day surgery (SDC) | payer OTHER, MEDICAID ==
[~2024-10-28] VITALS: Ht 190.5 cm; Wt 131.5 kg
[~2024-10-28] MED LIST changes: +BARIUM SULFATE 105% 750 ML ORAL SUSP ONE; +BARIUM SULFATE 105% 750 ML ORAL SUSP R ONE; +CLOPIDOGREL75 MG PO; +Lactated Ringer's Solution 1,000 ML IV ONE; +Lidocaine Hydrochloride 5 ML VIAL IV ONE; +METFORMIN HYDR500 MG PO; +PROPOFOL 200 MG/20 ML VIAL IV ONE; +ROSUVASTATIN CA40 MG PO
[2024-10-28 07:45] VITALS: BP 133/68
[2024-10-28 10:02] VITALS: BP 116/71
[2024-10-28 10:17] VITALS: BP 126/78
[2024-10-28 10:32] VITALS: BP 122/77
[2024-10-28 10:37] VITALS: BP 135/80
== END | disposition home or self-care (01) ==
LOC: SDC 10-26 09:30
PROVIDERS: ATTEND Surgery
DX: Z12.11 Encounter for screening for malignant neoplasm of colon (principal); D12.3 Benign neoplasm of transverse colon; K57.30 Diverticulosis of large intestine without perforation or abscess without bleeding; K21.9 Gastro-esophageal reflux disease without esophagitis; E11.9 Type 2 diabetes mellitus without complications; E78.00 Pure hypercholesterolemia, unspecified; I10 Essential (primary) hypertension; I25.10 Atherosclerotic heart disease of native coronary artery without angina pectoris; M10.9 Gout, unspecified; E78.5 Hyperlipidemia, unspecified; F32.A Depression, unspecified; M19.90 Unspecified osteoarthritis, unspecified site; Z86.0100 Personal history of colon polyps, unspecified; Z95.818 Presence of other cardiac implants and grafts; Z90.89 Acquired absence of other organs; Z98.41 Cataract extraction status, right eye; Z98.42 Cataract extraction status, left eye; Z98.890 Other specified postprocedural states; Z79.82 Long term (current) use of aspirin; Z79.84 Long term (current) use of oral hypoglycemic drugs; Z79.899 Other long term (current) drug therapy; Z91.018 Allergy to other foods; Z88.0 Allergy status to penicillin; Z91.041 Radiographic dye allergy status; Z82.3 Family history of stroke